=== PATIENT | male | born 1990 | race Caucasian/White ===

== ENCOUNTER 2016-11-11 08:38 | Emergency (ER) | payer OTHER ==
--- NOTE | 2016-11-11 13:05 | DIAGNOSTIC IMAGING REPORT ---
PROCEDURE: CT ABD/PELVIS WITH CONTRAST INDICATION: Mid abdominal pain. TECHNIQUE: 125 ml of Isovue 300 were injected intravenously and axial images were obtained of the entire abdomen and pelvis with sagittal and coronal reformations. COMPARISON: None. FINDINGS: ABDOMEN: There is moderate increased fluid and gas in the stomach, small bowel, and colon. Appendix is normal. Gallbladder, liver, spleen, pancreas, kidneys, and aorta are normal. Bowel pattern is normal, including appendix. PELVIS: Moderate increased fluid throughout the sigmoid colon and rectum. Small amount of free fluid. IMPRESSION: 1. Moderate increased fluid in the stomach, small bowel, colon, and rectum. Findings are compatible with gastroenterocolitis. 2. Normal appendix. 3. Otherwise negative CT abdomen and pelvis. 4. Findings discussed with Dr. Gonzalez Maguire. All CT scans at this facility use dose modulation, iterative reconstruction, and/or weight-based dosing when appropriate to reduce radiation dose to as low as reasonably achievable.
--- NOTE | 2016-11-11 13:21 | ED CLINICAL REPORT ---
Clinical Report - Physicians/Mid Levels [facility] [address] [place] [address] 11/11/2016 8:44 Patient: VANDANA BYNUM Time Seen: 09:03. Arrived- By private vehicle. Historian- patient. HISTORY OF PRESENT ILLNESS Chief Complaint: ABDOMINAL PAIN and VOMITING and DIARRHEA. At its maximum, severity described as moderate. When seen in the E.D., severity described as moderate. It is described as cramping and diffuse. This started about 5 days ago and is still present. It was gradual in onset and has been intermittent and waxing/waning. The patient has had nausea, vomiting and diarrhea. REVIEW OF SYSTEMS The patient has had chills and experienced sweats. No fever, calf pain, chest pain, cough or difficulty breathing. No pedal edema, palpitations, black stools, bloody stools or urinary problems. All systems otherwise negative, except as recorded above. SOCIAL HISTORY Current every day light tobacco smoker (cigarette)- less than 1/2 a pack per day. History of drug use: heroin, methamphetamines. No alcohol use. FAMILY HISTORY Denies family medical history. ADDITIONAL NOTES The nursing notes have been reviewed. PHYSICAL EXAM Vital Signs: 11/11/2016 08:50 BP: 123/65. HR: 87. RR: 18. O2 saturation: 96%. Temp: 97.8 F. Have been reviewed. Appearance: Alert. Eyes: Pupils equal, round and reactive to light. ENT: Pharynx normal. Neck: Normal inspection. Neck supple. CVS: Normal heart rate and rhythm. Heart sounds normal. Pulses normal. Respiratory: No respiratory distress. Breath sounds normal. Abdomen: Soft. Mild tenderness diffusely. Abnormal bowel sounds: hyperactive. No organomegaly. No mass. Back: Normal inspection. No CVA tenderness. Skin: Skin warm and dry. Normal skin color. Normal skin turgor. Extremities: Extremities exhibit normal ROM. No calf tenderness. No lower extremity edema. LABS, X-RAYS, AND EKG Abdominal CT: IMPRESSION: 1. Moderate increased fluid in the stomach, small bowel, colon, and rectum. Findings are compatible with gastroenterocolitis. 2. Normal appendix. 3. Otherwise negative CT abdomen and pelvis. The study was interpreted by the radiologist and contemporaneously by me. Laboratory Tests: UA-Culture if indicated: (KIANNA: 11/11/2016 10:00) ( [facility] [place] 10[facility]43[facility] Final results Test Result Flag Units (Reference) URINE COLOR YELLOW URINE APPEARANCE CLEAR URINE GLUCOSE NEGATIVE (NEGATIVE) URINE BILIRUBIN 1+ (NEGATIVE) URINE BILIRUBIN ICTOTEST POSITIVE (NEGATIVE) URINE KETONE NEGATIVE (NEGATIVE) URINE SPECIFIC GRAVITY >= 1.030 (1.010-1.030) URINE PH 6.0 (5.0-8.0) URINE PROTEIN NEGATIVE (NEGATIVE) URINE UROBILINOGEN 0.2 EU/dL (0.2-1.0) URINE NITRITE NEGATIVE (NEGATIVE) URINE BLOOD NEGATIVE (NEGATIVE) URINE LEUK ESTERASE NEGATIVE (NEGATIVE) URINE RBC NONE SEEN rbc/hpf (0-1) URINE WBC NONE SEEN wbc/hpf (0-1) URINE EPITHELIAL CELLS 1-3 EPI/hpf (0-5) URINE BACTERIA NONE SEEN (NONE SEEN) URINE COMMENT CULT NOT INDICATED URINE CULTURES ARE SET-UP BASED ON THE FOLLOWING CRITERIA:POSITIVE NITRITEPOSITIVE LEUKOCYTE ESTERASEGREATER THAN 10 WHITE BLOOD CELLSMODERATE (2+) OR GREATER BACTERIA CBC w Diff: (KIANNA: 11/11/2016 09:27) ( [facility] [place] 11/11/2016 09:39) Final results Test Result Flag Units (Reference) WHITE BLOOD COUNT 7.2 K/uL (4.5-11.5) RED BLOOD COUNT 4.39 L M/uL (4.50-5.90) HEMOGLOBIN 12.9 L gm/dL (13.5-17.5) HEMATOCRIT 37.7 L % (41.0-53.0) MEAN CELL VOLUME 86 fL (80-100) MEAN CORPUSCULAR HGB 29 pg (26-34) MEAN CORPUSCULAR HGB CONC 34 g/dL (31-37) RED CELL DISTRIBUTION WIDTH 14.8 % (11.6-14.8) PLATELET COUNT 250 K/uL (150-400) NEUTROPHIL % 65.9 % (50-75) LYMPH % 23.3 L % (25-40) MONO % 8.4 % (3-14) EOSINOPHIL % 2.1 % (0-4) BASOPHIL % 0.3 % (0-2) Urine Drug Screen: (KIANNA: 11/11/2016 10:00) ( [facility] 11/11/2016 10:25) Final results Test Result Flag Units (Reference) AMPHETAMINE/METHAMPHETAMINE POSITIVE H (NEGATIVE) BARBITURATE NEGATIVE (NEGATIVE) BENZODIAZEPINE NEGATIVE (NEGATIVE) CANNABINOID NEGATIVE (NEGATIVE) COCAINE NEGATIVE (NEGATIVE) ECSTASY POSITIVE H (NEGATIVE) METHADONE NEGATIVE (NEGATIVE) OPIATE POSITIVE H (NEGATIVE) The urine drug screen is a qualitative screening test fordrug overdose and abuse. All screen results should beconsidered as presumptive.Drugs screened for are as follows:BenzodiazepinesCocaineAmphetamines/MetamphetaminesTHC (Tetrahydrocannabinol)OpiatesBarbituratesEcstasyMethadonePositive results are unconfirmed. For confirmation, notifythe lab for the specimen to be sent to the reference lab.All confirmations must be performed by a differentmethodology.The ingestion of natural herbal and plant productscontaining Ephedra/Ephedra metabolites can produce in urineone or more substances capable of cross reacting withamphetamine/methamphetamine immunoassays. These testsprovide a preliminary result only. A more specificalternative chemical method must be used to obtain aconfirmed analytical result. CMP: (KIANNA: 11/11/2016 09:27) ( MsgRcvd 11/11/2016 10:14) Final results Test Result Flag Units (Reference) GLUCOSE 109 mg/dL (70-110) BUN 14 mg/dL (7-18) CREATININE 0.9 mg/dL (0.6-1.3) Estimated GFR >60 mL/min Estimated GFR- >60 mL/min Note: Persistent reduction over 3 months in eGFR<60 mL/min/1.73 m2 defines CKD. Patients with eGFR values>=60 mL/min/1.73 m2 may also have CKD if evidence ofpersistent proteinuria. Additional information may be foundat www.kidney.org. SODIUM 138 mmol/L (136-145) POTASSIUM 4.5 mmol/L (3.5-5.1) CHLORIDE 102 mmol/L (98-107) CARBON DIOXIDE 31 mmol/L (21-32) CALCIUM 8.9 mg/dL (8.5-10.1) TOTAL PROTEIN 7.1 g/dL (6.4-8.2) ALBUMIN 3.5 g/dL (3.3-5.0) BILIRUBIN, TOTAL 0.5 mg/dL (0.0-1.0) ALKALINE PHOSPHATASE 78 U/L (46-116) AST (SGOT) 18 U/L (15-37) ALT (SGPT) 25 U/L (12-78) LIPASE 70 L U/L (73-393) AMYLASE 19 L U/L (25-115) . PROGRESS AND PROCEDURES Course of Care: Patient is stable. Additional history sought. Old medical records ordered. Disposition: Discharged. Condition: stable. CLINICAL IMPRESSION Gastroenteritis. Substance abuse- heroin, methamphetamines. INSTRUCTIONS Drink plenty of fluids. Warnings: Further evaluation is necessary. GENERAL WARNINGS: Return or contact your physician immediately if your condition worsens or changes unexpectedly, if not improving as expected, or if other problems arise. Prescription Medications: Zofran 4 mg: Take 1 orally every six hours as needed for nausea/vomiting. Dispense ten (10). No refills. Substitution is permissible. Understanding of the discharge instructions verbalized by patient. (Electronically signed by Gonzalez Maguire MD 11/18/2016 15:37)
--- NOTE | 2016-11-11 13:21 | ED ORDER SUMMARY ---
..... Patient: VANDANA BYNUM OrderSheet [facility] VisitID: [id number] [place] [address] 25y, M Registration Date/Time: 11/11/2016 ORDER SHEET Weight: 72.5 kg (stated) Allergies: Penicillin GENERAL ORDERS: CBC w Diff Urgent (09:04 11/11/2016 Terrance DAVID) (Ack 9:06 LNations ER Tech1) (9:37 LWhalen R.N.) CMP Urgent (09:04 11/11/2016 Terrance DAVID) (Ack 9:06 LNations ER Tech1) (9:37 LWhalen R.N.) UA-Culture if indicated Urgent (09:04 11/11/2016 Terrance DAVID) (Ack 9:06 LNations ER Tech1) (10:04 PWeiler ER Tech1) Lipase Urgent (09:04 11/11/2016 Terrance DAVID) (Ack 9:06 LNations ER Tech1) (9:37 LWhalen R.N.) Amylase Urgent (09:04 11/11/2016 Terrance DAVID) (Ack 9:06 LNations ER Tech1) (9:37 LWhalen R.N.) Urine Drug Screen Urgent (09:05 11/11/2016 Terrance DAVID) (Ack 9:06 LNations ER Tech1) (10:04 PWeiler ER Tech1) CT Abd/Pel w Cont (No) (See report) Urgent (11:01 11/11/2016 Terrance DAVID) (Ack 11:03 LNations ER Tech1) (14:14 Elmer R.N.) MEDICATION ORDERS: IV FLUIDS: IV NS : initial bolus 1000 mL (1000 mL/hr), then 200 mL/hr for 4h (NOW); Urgent (09:04 11/11/2016 Terrance DAVID) (9:37 LWlonny R.N.) Zofran IV 4 mg (NOW) (09:04 11/11/2016 Terrance DAVID) (9:37 LWhalen R.N.) ORDER SHEET NOTES: [Electronically signed by Rachel Encarnacion R.N. (14:15 11/11/2016)] [Electronically signed by Gonzalez Maguire MD (15:37 11/18/2016)] [Electronically locked/signed by Rachel Encarnacion R.N. (14:15 11/11/2016)]
--- NOTE | 2016-11-11 13:21 | ED NURSING NOTES ---
Clinical Report - Nurses [place] [address] [place] [address] 11/11/2016 8:44 [id number] Triage time 08:50 Nov 11 2016. Acuity: LEVEL 3. Chief Complaint: ABDOMINAL PAIN, NAUSEA, VOMITING and DIARRHEA. YONIS COMA SCORE: Yonis Coma Scale: 15- eyes open spontaneously (4); best verbal response- oriented x 4 (5); best motor response- obeys commands (6). --08:54 Brittany Gonzalez R.N. 08:50 11/11/16. BP: 123/65. HR: 87. RR: 18. O2 saturation: 96%. Temp: 97.8 F. Pain level now 3/10. --08:54 Brittany Gonzalez R.N. Weight: 72.5 kg stated. Height/Length: 74 inches Per Patient. BMI: 20.5. --08:51 Brittany Gonzalez R.N. Medications None. --08:51 Brittany Gonzalez R.N. Allergies Penicillin. --08:51 Brittany Gonzalez R.N. History Arrived by private vehicle. Historian: patient. Accompanied by friend. ( 5 days of vomiting and diarrhea.). He has had nausea, vomiting, diarrhea and abdominal pain. No constipation or fever. Last oral intake by patient was (fluids only this am). Treatment COMMUNICATIONS DEPARTMENT HEAD: None. PAST MEDICAL HX: No history of diabetes mellitus. No history of gastroesophageal reflux disease, peptic ulcer disease or gallstones. Immunizations: up-to-date. SOCIAL HX: Current every day light tobacco smoker (cigarette)- less than 1/2 a pack per day. History of drug use: heroin, methamphetamines. No alcohol use. No recent travel. No known contact with a sick individual. SELF HARM ASSESSMENT: A self harm assessment was performed. The patient answered "no" to the question "Have you recently felt down, depressed, or hopeless?" and "Do you have thoughts of harming or killing yourself?". FALL RISK ASSESSMENT: Fall risk assessment completed. No fall risk identified. NUTRITIONAL RISK ASSESSMENT: The nutritional risk assessment revealed no deficiencies. FUNCTIONAL ASSESSMENT: Functional assessment: no impairments noted. LEARNING NEEDS ASSESSMENT: The learning needs assessment revealed no barriers. ABUSE ASSESSMENT: Abuse assessment: (yes) The patient was asked "Do you feel safe in your home?". SKIN INTEGRITY ASSESSMENT: Skin integrity risk assessment completed. No skin integrity risk identified. --08:54 Brittany Gonzalez R.N. PROBLEMS: no known problems. ADDITIONAL SURGERIES: no known surgeries. Interventions ID band on patient. --08:54 Brittany Gonzalez R.N. PHYSICAL ASSESSMENT Ambulatory to room. GENERAL / NEURO / PSYCH: Alert. Oriented X 4. Appears in no acute distress. ( Stumbling while walking. States he is okay). RESPIRATORY: Respirations not labored. Breath sounds within normal limits. CVS: Normal sinus rhythm noted. Capillary refill less than 2 seconds. GI / : The patient has diarrhea. Abdomen soft. Abdominal tenderness. Bowel sounds within normal limits. ( States having diarrhea all 5 days). SKIN: ( Old needle carlson and new ones on vein areas. Patient unkept and dirty.). --11:06 Brittany Gonzalez R.N. NURSING PROGRESS NOTES 09:37 11/11/2016 Site #1 started via IV in the right upper arm with an 22g angiocath, with aseptic technique and good blood return; one attempt. Saline lock flushed (unable to draw labs.). --09:37 Brittany Gonzalez R.N. 09:37 11/11/2016 Started bag #1 1000 mL IV Fluids IV NS (Saline); at 999 mL/hr over 1 hour(s) via site #1 via IV pump. Allergies verified and confirmed 5 rights. IV patency established. IV site checked: no pain, redness, or swelling. IV flushed thoroughly pre- and post-medication administration. --09:37 Brittany Gonzalez R.N. 09:37 11/11/2016 Zofran (Ondansetron HCl) IVP 4 mg given over 2 minute(s) via site #1. Allergies verified and confirmed 5 rights. IV patency established. IV site checked: no pain, redness, or swelling. IV flushed thoroughly pre- and post-medication administration. --09:37 Brittany Gonzalez R.N. The initial plan of care for this patient includes an assessment with efforts to address patient positioning, appropriate ambient lighting and comfortable environmental temperature; impairment of the gastrointestinal system. Pulse oximeter and NIBP monitor placed on patient. Patient gowned. Head of bed elevated 45 degrees. Reassurance given. Call light placed in reach. Side rails up x 1. Bed placed in lowest position. Brakes of bed on. --11:06 Brittany Gonzalez R.N. 11:22 11/11/2016 IV Fluids IV NS Bag Change: bag #1 infused. Total amount infused: 1000. STARTED bag #2 (1000 mL) at 200 mL/hr via IV pump. --11:22 Rachel Encarnacion R.N. 12:33 11/11/16. BP: 112/72. HR: 72. RR: 18. O2 saturation: 100%. 11:10 11/11/16. BP: 120/68. HR: 72. RR: 18. O2 saturation: 98%. 10:15 11/11/16. BP: 105/70. HR: 70. RR: 16. O2 saturation: 100%. --12:34 Brittany Gonzalez R.N. 14:05. The patient is calm and resting quietly. Overall patient status is improved- he states feels better. SKIN: Skin is warm and dry. --14:10 Rachel Encarnacion R.N. 14:05 pt was sleeping and had to be awakened by assistant operations manager, then was awake, alert, verbalized understanding and had no questions. --14:13 Rachel Encarnacion R.N. 14:05 11/11/2016 Site #1 removed upon discharge. Catheter intact. Bandaid applied. --14:14 Rachel Encarnacion R.N. 14:11/11/2016 IV Fluids IV NS Discontinued: bag #2 STOPPED upon discharge. Total amount infused: 200 mL. --14:14 Rachel Encarnacion R.N. Intake & Output IV fluids: 1200 mL. --14:15 Rachel Encarnacion R.N. DISPOSITION / DISCHARGE Departure time: 1405. Condition at departure: stable. No learning barriers present. Discharge instructions provided and reviewed with the patient. Reviewed medication(s). Prescription(s) given to the patient. Patient verbalized understanding. Written instructions provided in Ghanaian. The patient was discharged home and accompanied by assistant operations manager. He left the Emergency Department ambulatory. FALL RISK ASSESSMENT: Fall risk assessment completed. No fall risk identified. --14:09 Rachel Encarnacion R.N. 14:05 11/11/16. BP: 111/59. HR: 89. RR: 16. O2 saturation: 99% on room air. Temp: 98.2 F (oral). Pain level now: uncertain. --14:09 Rachel Encarnacion R.N. Locked/Released at 11/11/2016 14:15 by Rachel Encarnacion R.N.
--- NOTE | 2016-11-11 13:21 | ED ORDER SUMMARY ---
..... Patient: VANDANA BYNUM OrderSheet [facility] VisitID: [id number] [place] [address] 25y, M Registration Date/Time: 11/11/2016 ORDER SHEET Weight: 72.5 kg (stated) Allergies: Penicillin GENERAL ORDERS: CBC w Diff Urgent (09:04 11/11/2016 Terrance DAVID) (Ack 9:06 LNations ER Tech1) (9:37 LWhalen R.N.) CMP Urgent (09:04 11/11/2016 Terrance DAVID) (Ack 9:06 LNations ER Tech1) (9:37 LWhalen R.N.) UA-Culture if indicated Urgent (09:04 11/11/2016 Terrance DAVID) (Ack 9:06 LNations ER Tech1) (10:04 PWeiler ER Tech1) Lipase Urgent (09:04 11/11/2016 Terrance DAVID) (Ack 9:06 LNations ER Tech1) (9:37 LWhalen R.N.) Amylase Urgent (09:04 11/11/2016 Terrance DAVID) (Ack 9:06 LNations ER Tech1) (9:37 LWhalen R.N.) Urine Drug Screen Urgent (09:05 11/11/2016 Terrance DAVID) (Ack 9:06 LNations ER Tech1) (10:04 PWeiler ER Tech1) CT Abd/Pel w Cont (No) (See report) Urgent (11:01 11/11/2016 Terrance DAVID) (Ack 11:03 LNations ER Tech1) (14:14 Elmer R.N.) MEDICATION ORDERS: IV FLUIDS: IV NS : initial bolus 1000 mL (1000 mL/hr), then 200 mL/hr for 4h (NOW); Urgent (09:04 11/11/2016 Terrance DAVID) (9:37 LWlonny R.N.) Zofran IV 4 mg (NOW) (09:04 11/11/2016 Terrance DAVID) (9:37 LWhalen R.N.) ORDER SHEET NOTES: [Electronically signed by Rachel Encarnacion R.N. (14:15 11/11/2016)] [Electronically signed by Gonzalez Maguire MD (15:37 11/18/2016)] [Electronically locked/signed by Rachel Encarnacion R.N. (14:15 11/11/2016)]
--- NOTE | 2016-11-11 13:21 | ED CLINICAL REPORT ---
Clinical Report - Physicians/Mid Levels Located [facility] [address] [place] [address] 11/11/2016 8:44 Patient: VANDANA BYNUM Time Seen: 09:03. Arrived- By private vehicle. Historian- patient. HISTORY OF PRESENT ILLNESS Chief Complaint: ABDOMINAL PAIN and VOMITING and DIARRHEA. At its maximum, severity described as moderate. When seen in the E.D., severity described as moderate. It is described as cramping and diffuse. This started about 5 days ago and is still present. It was gradual in onset and has been intermittent and waxing/waning. The patient has had nausea, vomiting and diarrhea. REVIEW OF SYSTEMS The patient has had chills and experienced sweats. No fever, calf pain, chest pain, cough or difficulty breathing. No pedal edema, palpitations, black stools, bloody stools or urinary problems. All systems otherwise negative, except as recorded above. SOCIAL HISTORY Current every day light tobacco smoker (cigarette)- less than 1/2 a pack per day. History of drug use: heroin, methamphetamines. No alcohol use. FAMILY HISTORY Denies family medical history. ADDITIONAL NOTES The nursing notes have been reviewed. PHYSICAL EXAM Vital Signs: 11/11/2016 08:50 BP: 123/65. HR: 87. RR: 18. O2 saturation: 96%. Temp: 97.8 F. Have been reviewed. Appearance: Alert. Eyes: Pupils equal, round and reactive to light. ENT: Pharynx normal. Neck: Normal inspection. Neck supple. CVS: Normal heart rate and rhythm. Heart sounds normal. Pulses normal. Respiratory: No respiratory distress. Breath sounds normal. Abdomen: Soft. Mild tenderness diffusely. Abnormal bowel sounds: hyperactive. No organomegaly. No mass. Back: Normal inspection. No CVA tenderness. Skin: Skin warm and dry. Normal skin color. Normal skin turgor. Extremities: Extremities exhibit normal ROM. No calf tenderness. No lower extremity edema. LABS, X-RAYS, AND EKG Abdominal CT: IMPRESSION: 1. Moderate increased fluid in the stomach, small bowel, colon, and rectum. Findings are compatible with gastroenterocolitis. 2. Normal appendix. 3. Otherwise negative CT abdomen and pelvis. The study was interpreted by the radiologist and contemporaneously by me. Laboratory Tests: UA-Culture if indicated: (KIANNA: 11/11/2016 10:00) ( [facility] [place]11[place] 10:43) Final results Test Result Flag Units (Reference) URINE COLOR YELLOW URINE APPEARANCE CLEAR URINE GLUCOSE NEGATIVE (NEGATIVE) URINE BILIRUBIN 1+ (NEGATIVE) URINE BILIRUBIN ICTOTEST POSITIVE (NEGATIVE) URINE KETONE NEGATIVE (NEGATIVE) URINE SPECIFIC GRAVITY >= 1.030 (1.010-1.030) URINE PH 6.0 (5.0-8.0) URINE PROTEIN NEGATIVE (NEGATIVE) URINE UROBILINOGEN 0.2 EU/dL (0.2-1.0) URINE NITRITE NEGATIVE (NEGATIVE) URINE BLOOD NEGATIVE (NEGATIVE) URINE LEUK ESTERASE NEGATIVE (NEGATIVE) URINE RBC NONE SEEN rbc/hpf (0-1) URINE WBC NONE SEEN wbc/hpf (0-1) URINE EPITHELIAL CELLS 1-3 EPI/hpf (0-5) URINE BACTERIA NONE SEEN (NONE SEEN) URINE COMMENT CULT NOT INDICATED URINE CULTURES ARE SET-UP BASED ON THE FOLLOWING CRITERIA:POSITIVE NITRITEPOSITIVE LEUKOCYTE ESTERASEGREATER THAN 10 WHITE BLOOD CELLSMODERATE (2+) OR GREATER BACTERIA CBC w Diff: (KIANNA: 11/11/2016 09:27) ( [facility] [place] 11/11/2016 09:39) Final results Test Result Flag Units (Reference) WHITE BLOOD COUNT 7.2 K/uL (4.5-11.5) RED BLOOD COUNT 4.39 L M/uL (4.50-5.90) HEMOGLOBIN 12.9 L gm/dL (13.5-17.5) HEMATOCRIT 37.7 L % (41.0-53.0) MEAN CELL VOLUME 86 fL (80-100) MEAN CORPUSCULAR HGB 29 pg (26-34) MEAN CORPUSCULAR HGB CONC 34 g/dL (31-37) RED CELL DISTRIBUTION WIDTH 14.8 % (11.6-14.8) PLATELET COUNT 250 K/uL (150-400) NEUTROPHIL % 65.9 % (50-75) LYMPH % 23.3 L % (25-40) MONO % 8.4 % (3-14) EOSINOPHIL % 2.1 % (0-4) BASOPHIL % 0.3 % (0-2) Urine Drug Screen: (KIANNA: 11/11/2016 10:00) ( MsgRcvd 11/11/2016 10:25) Final results Test Result Flag Units (Reference) AMPHETAMINE/METHAMPHETAMINE POSITIVE H (NEGATIVE) BARBITURATE NEGATIVE (NEGATIVE) BENZODIAZEPINE NEGATIVE (NEGATIVE) CANNABINOID NEGATIVE (NEGATIVE) COCAINE NEGATIVE (NEGATIVE) ECSTASY POSITIVE H (NEGATIVE) METHADONE NEGATIVE (NEGATIVE) OPIATE POSITIVE H (NEGATIVE) The urine drug screen is a qualitative screening test fordrug overdose and abuse. All screen results should beconsidered as presumptive.Drugs screened for are as follows:BenzodiazepinesCocaineAmphetamines/MetamphetaminesTHC (Tetrahydrocannabinol)OpiatesBarbituratesEcstasyMethadonePositive results are unconfirmed. For confirmation, notifythe lab for the specimen to be sent to the reference lab.All confirmations must be performed by a differentmethodology.The ingestion of natural herbal and plant productscontaining Ephedra/Ephedra metabolites can produce in urineone or more substances capable of cross reacting withamphetamine/methamphetamine immunoassays. These testsprovide a preliminary result only. A more specificalternative chemical method must be used to obtain aconfirmed analytical result. CMP: (KIANNA: 11/11/2016 09:27) ( MsgRcvd 11/11/2016 10:14) Final results Test Result Flag Units (Reference) GLUCOSE 109 mg/dL (70-110) BUN 14 mg/dL (7-18) CREATININE 0.9 mg/dL (0.6-1.3) Estimated GFR >60 mL/min Estimated GFR- >60 mL/min Note: Persistent reduction over 3 months in eGFR<60 mL/min/1.73 m2 defines CKD. Patients with eGFR values>=60 mL/min/1.73 m2 may also have CKD if evidence ofpersistent proteinuria. Additional information may be foundat www.kidney.org. SODIUM 138 mmol/L (136-145) POTASSIUM 4.5 mmol/L (3.5-5.1) CHLORIDE 102 mmol/L (98-107) CARBON DIOXIDE 31 mmol/L (21-32) CALCIUM 8.9 mg/dL (8.5-10.1) TOTAL PROTEIN 7.1 g/dL (6.4-8.2) ALBUMIN 3.5 g/dL (3.3-5.0) BILIRUBIN, TOTAL 0.5 mg/dL (0.0-1.0) ALKALINE PHOSPHATASE 78 U/L (46-116) AST (SGOT) 18 U/L (15-37) ALT (SGPT) 25 U/L (12-78) LIPASE 70 L U/L (73-393) AMYLASE 19 L U/L (25-115) . PROGRESS AND PROCEDURES Course of Care: Patient is stable. Additional history sought. Old medical records ordered. Disposition: Discharged. Condition: stable. CLINICAL IMPRESSION Gastroenteritis. Substance abuse- heroin, methamphetamines. INSTRUCTIONS Drink plenty of fluids. Warnings: Further evaluation is necessary. GENERAL WARNINGS: Return or contact your physician immediately if your condition worsens or changes unexpectedly, if not improving as expected, or if other problems arise. Prescription Medications: Zofran 4 mg: Take 1 orally every six hours as needed for nausea/vomiting. Dispense ten (10). No refills. Substitution is permissible. Understanding of the discharge instructions verbalized by patient. (Electronically signed by Gonzalez Maguire MD 11/18/2016 15:37)
--- NOTE | 2016-11-11 13:21 | ED NURSING NOTES ---
Clinical Report - Nurses [place] [address] [place] [address] 11/11/2016 8:44 [id number] Triage time 08:50 Nov 11 2016. Acuity: LEVEL 3. Chief Complaint: ABDOMINAL PAIN, NAUSEA, VOMITING and DIARRHEA. YONIS COMA SCORE: Yonis Coma Scale: 15- eyes open spontaneously (4); best verbal response- oriented x 4 (5); best motor response- obeys commands (6). --08:54 Brittany Gonzalez R.N. 08:50 11/11/16. BP: 123/65. HR: 87. RR: 18. O2 saturation: 96%. Temp: 97.8 F. Pain level now 3/10. --08:54 Brittany Gonzalez R.N. Weight: 72.5 kg stated. Height/Length: 74 inches Per Patient. BMI: 20.5. --08:51 Brittany Gonzalez R.N. Medications None. --08:51 Brittany Gonzalez R.N. Allergies Penicillin. --08:51 Brittany Gonzalez R.N. History Arrived by private vehicle. Historian: patient. Accompanied by friend. ( 5 days of vomiting and diarrhea.). He has had nausea, vomiting, diarrhea and abdominal pain. No constipation or fever. Last oral intake by patient was (fluids only this am). 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 PAST MEDICAL HX: No history of diabetes mellitus. No history of gastroesophageal reflux disease, peptic ulcer disease or gallstones. Immunizations: up-to-date. SOCIAL HX: Current every day light tobacco smoker (cigarette)- less than 1/2 a pack per day. History of drug use: heroin, methamphetamines. No alcohol use. No recent travel. No known contact with a sick individual. SELF HARM ASSESSMENT: A self harm assessment was performed. The patient answered "no" to the question "Have you recently felt down, depressed, or hopeless?" and "Do you have thoughts of harming or killing yourself?". FALL RISK ASSESSMENT: Fall risk assessment completed. No fall risk identified. NUTRITIONAL RISK ASSESSMENT: The nutritional risk assessment revealed no deficiencies. FUNCTIONAL ASSESSMENT: Functional assessment: no impairments noted. LEARNING NEEDS ASSESSMENT: The learning needs assessment revealed no barriers. ABUSE ASSESSMENT: Abuse assessment: (yes) The patient was asked "Do you feel safe in your home?". SKIN INTEGRITY ASSESSMENT: Skin integrity risk assessment completed. No skin integrity risk identified. --08:54 Brittany Gonzalez R.N. PROBLEMS: no known problems. ADDITIONAL SURGERIES: no known surgeries. Interventions ID band on patient. --08:54 Brittany Gonzalez R.N. PHYSICAL ASSESSMENT Ambulatory to room. GENERAL / NEURO / PSYCH: Alert. Oriented X 4. Appears in no acute distress. ( Stumbling while walking. States he is okay). RESPIRATORY: Respirations not labored. Breath sounds within normal limits. CVS: Normal sinus rhythm noted. Capillary refill less than 2 seconds. GI / : The patient has diarrhea. Abdomen soft. Abdominal tenderness. Bowel sounds within normal limits. ( States having diarrhea all 5 days). SKIN: ( Old needle carlson and new ones on vein areas. Patient unkept and dirty.). --11:06 Brittany Gonzalez R.N. NURSING PROGRESS NOTES 09:37 11/11/2016 Site #1 started via IV in the right upper arm with an 22g angiocath, with aseptic technique and good blood return; one attempt. Saline lock flushed (unable to draw labs.). --09:37 Brittany Gonzalez R.N. 09:37 11/11/2016 Started bag #1 1000 mL IV Fluids IV NS (Saline); at 999 mL/hr over 1 hour(s) via site #1 via IV pump. Allergies verified and confirmed 5 rights. IV patency established. IV site checked: no pain, redness, or swelling. IV flushed thoroughly pre- and post-medication administration. --09:37 Brittany Gonzalez R.N. 09:37 11/11/2016 Zofran (Ondansetron HCl) IVP 4 mg given over 2 minute(s) via site #1. Allergies verified and confirmed 5 rights. IV patency established. IV site checked: no pain, redness, or swelling. IV flushed thoroughly pre- and post-medication administration. --09:37 Brittany Gonzalez R.N. The initial plan of care for this patient includes an assessment with efforts to address patient positioning, appropriate ambient lighting and comfortable environmental temperature; impairment of the gastrointestinal system. Pulse oximeter and NIBP monitor placed on patient. Patient gowned. Head of bed elevated 45 degrees. Reassurance given. Call light placed in reach. Side rails up x 1. Bed placed in lowest position. Brakes of bed on. --11:06 Brittany Gonzalez R.N. 11:22 11/11/2016 IV Fluids IV NS Bag Change: bag #1 infused. Total amount infused: 1000. STARTED bag #2 (1000 mL) at 200 mL/hr via IV pump. --11:22 Rachel Encarnacion R.N. 12:33 11/11/16. BP: 112/72. HR: 72. RR: 18. O2 saturation: 100%. 11:10 11/11/16. BP: 120/68. HR: 72. RR: 18. O2 saturation: 98%. 10:15 11/11/16. BP: 105/70. HR: 70. RR: 16. O2 saturation: 100%. --12:34 Brittany Gonzalez R.N. 14:05. The patient is calm and resting quietly. Overall patient status is improved- he states feels better. SKIN: Skin is warm and dry. --14:10 Rachel Encarnacion R.N. 14:05 pt was sleeping and had to be awakened by carpenter helper hardwood flooring, then was awake, alert, verbalized understanding and had no questions. --14:13 Rachel Encarnacion R.N. 14:05 11/11/2016 Site #1 removed upon discharge. Catheter intact. Bandaid applied. --14:14 Rachel Encarnacion R.N. 14:11/11/2016 IV Fluids IV NS Discontinued: bag #2 STOPPED upon discharge. Total amount infused: 200 mL. --14:14 Rachel Encarnacion R.N. Intake & Output IV fluids: 1200 mL. --14:15 Rachel Encarnacion R.N. DISPOSITION / DISCHARGE Departure time: 1405. Condition at departure: stable. No learning barriers present. Discharge instructions provided and reviewed with the patient. Reviewed medication(s). Prescription(s) given to the patient. Patient verbalized understanding. Written instructions provided in Fijian. The patient was discharged home and accompanied by carpenter helper hardwood flooring. He left the Emergency Department ambulatory. FALL RISK ASSESSMENT: Fall risk assessment completed. No fall risk identified. --14:09 Rachel Encarnacion R.N. 14:05 11/11/16. BP: 111/59. HR: 89. RR: 16. O2 saturation: 99% on room air. Temp: 98.2 F (oral). Pain level now: uncertain. --14:09 Rachel Encarnacion R.N. Locked/Released at 11/11/2016 14:15 by Rachel Encarnacion R.N.
--- NOTE | 2016-11-18 15:38 | ED MAR SUMMARY ---
..... Medication Administration Record [facility] [address] [place] [address] Patient: VANDANA BYNUM Visit ID: [id number] 25y, M Weight: 72.5 kg Height/Length: 74 in BMI: 20.5 ALLERGIES: Penicillin Start 09:37 11/11/2016 Brittany Gonzalez R.N., Stop 14:05 11/11/2016 Rachel Encarnacion R.N. Medication Administered: IV NS (SALINE), Dose: IV Fluids over 1 hour(s), Rate: 999 mL/hr, Dispensed: 1000 mL bag, Site: #1 right upper arm. Medication Ordered: IV NS : initial bolus 1000 mL (1000 mL/hr), then 200 mL/hr for 4h (NOW); Urgent. Given 09:37 11/11/2016 Brittany Gonzalez RNeal Medication Administered: ZOFRAN [IVP] (ONDANSETRON HCL), Dose: 4 mg IVP over 2 minute(s), Site: #1 right upper arm. Medication Ordered: Zofran IV 4 mg (NOW).
--- NOTE | 2016-11-18 15:38 | ED DISCHARGE INSTRUCTIONS ---
Patient: VANDANA BYNUM General Instructions [facility] VisitID: [id number] [place] [address] 25y, M Registration Date/Time: 11/11/2016 Gastroenteritis. Substance abuse- heroin, methamphetamines. INSTRUCTIONS Drink plenty of fluids. Warnings: Further evaluation is necessary. GENERAL WARNINGS: Return or contact your physician immediately if your condition worsens or changes unexpectedly, if not improving as expected, or if other problems arise. Prescription Medications: Zofran 4 mg: Take 1 orally every six hours as needed for nausea/vomiting. Dispense ten (10). No refills. Substitution is permissible. Understanding of the discharge instructions verbalized by patient. ADDITIONAL INFORMATION Viral Gastroenteritis (6Yr-Adult) Gastroenteritis is another name for thestomach flu.It is most often caused by a virus that affects the stomach and intestinal tract. Symptoms include stomach cramping and fever, vomiting and/or diarrhea, and can last from 2 to 7 days. The danger from repeated vomiting or diarrhea is dehydration. This is the loss of too much water and minerals from the body. When this occurs, body fluids must be replaced. Antibiotics are not effective for this illness, but simple home treatment will be helpful. Home Care If symptoms are severe, rest at home for the next 24 hours. Avoid tobacco, caffeine, and alcohol use, which can worsen symptoms. Acetaminophen (Tylenol) or ibuprofen (Motrin, Advil) may be usedfor fever or pain unless another medication was prescribed. NOTE: If you have chronic liver or kidney disease or ever had a stomach ulcer or GI bleeding, talk with your doctor before using these medicines. Aspirin should never be used in anyone under 18 years of age who is ill with a fever. It may cause severe liver damage. If medicines for diarrhea or vomiting were prescribed, be sure they are takenonly as directed. If vomiting, drink small amounts of clear fluids (such as water, sports drinks, clear sodas) at frequent intervals to prevent dehydration. Start with 1 to 2 tablespoons every 10 minutes. Once vomiting stops, follow these guidelines: During The First 12 To 24 Hours follow the diet below: Beverages: Sport drinks like Gatorade, soft drinks without caffeine; stepan sarina, mineral water (plain or flavored), decaffeinated tea and coffee. Soups: Clear broth, consomm and bouillon Desserts: Plain gelatin (Jell-O), Popsicles and fruit juice bars. During The Next 24 Hours you may add the following to the above: Hot cereal, plain toast, bread, rolls, crackers Plain noodles, rice, mashed potatoes, chicken noodle or rice soup Unsweetened canned fruit (avoid pineapple), bananas Limit fat intake to less than 15 grams per day by avoiding margarine, butter, oils, mayonnaise, sauces, gravies, fried foods, peanut butter, meat, poultry, and fish. Limit fiber; avoid raw or cooked vegetables, fresh fruits (except bananas), and bran cereals. Limit caffeine and chocolate. Do not use spices or seasonings except salt. During The Next 24 Hours The patient can gradually resume a normal diet as symptoms lessen. Preventing Spread Hand washing with soap and water is the best way to prevent the spread of viruses. Caregivers should wash their hands before andafter touching the sick person. The sick person, as well as everyone in the family,should wash their hands after using the toilet and before meals. Clean the toilet after each use. People with diarrhea should not prepare food for others. If you are preparing your own foods, wash your hands before and after. Follow Up with your doctor as advised. Call your doctor if you are not improving over the next 2 to 3 days. If a stool (diarrhea) sample was taken, you may call in 2 days (or as directed) for the results. Get Prompt Medical Attention if any of the following occur: Increasing abdominal pain Continued vomiting (unable to keep liquids down) Frequent diarrhea (more than 5 times a day) Blood in vomit or stool (black or red color) Dark urine, reduced urine output, or extreme thirst Weakness, dizziness, fainting Drowsiness, confusion, stiff neck, or seizure Fever of 100.4F (38C) oral or higher, not better with fever medication New rash Ondansetron Oral disintegrating tablet What is this medicine? ONDANSETRON (on JANET se carlos) is used to treat nausea and vomiting caused by chemotherapy. It is also used to prevent or treat nausea and vomiting after surgery. How should I use this medicine? These tablets are made to dissolve in the mouth. Do not try to push the tablet through the foil backing. With dry hands, peel away the foil backing and gently remove the tablet. Place the tablet in the mouth and allow it to dissolve, then swallow. While you may take these tablets with water, it is not necessary to do so. Talk to your bi analyst regarding the use of this medicine in children. Special care may be needed. What side effects may I notice from receiving this medicine? Side effects that you should report to your doctor or health rn long term care as soon as possible: allergic reactions like skin rash, itching or hives, swelling of the face, lips, or tongue breathing problems dizziness fast or irregular heartbeat feeling faint or lightheaded, falls fever and chills swelling of the hands and feet tightness in the chest Side effects that usually do not require medical attention (report to your doctor or health rn long term care if they continue or are bothersome): constipation or diarrhea headache What may interact with this medicine? Do not take this medicine with any of the following medications: -apomorphine -cisapride -dofetilide -dronedarone -pimozide -thioridazine -ziprasidone This medicine may also interact with the following medications: -carbamazepine -phenytoin -rifampicin -tramadol -other medicines that prolong the QT interval (cause an abnormal heart rhythm) What if I miss a dose? If you miss a dose, take it as soon as you can. If it is almost time for your next dose, take only that dose. Do not take double or extra doses. Where should I keep my medicine? Keep out of the reach of children. Store between 2 and 30 degrees C (36 and 86 degrees F). Throw away any unused medicine after the expiration date. What should I tell my health care provider before I take this medicine? They need to know if you have any of these conditions: heart disease history of irregular heartbeat liver disease low levels of magnesium or potassium in the blood an unusual or allergic reaction to ondansetron, granisetron, other medicines, foods, dyes, or preservatives or trying to get breast-feeding What should I watch for while using this medicine? Check with your doctor or health rn long term care as soon as you can if you have any sign of an allergic reaction. You have been given the following additional information: Gastroenteritis, Viral (6Y-Adult) Ondansetron Oral disintegrating tablet (Electronically signed by Gonzalez Maguire MD 11/18/2016 15:37)
--- NOTE | 2016-11-18 15:38 | ED MED RECONCILIATION SUMMARY ---
Patient: VANDANA BYNUM Medication Reconciliation Report [facility] VisitID: [id number] [address] [place] [address] 25y, M Registration Date/Time: 11/11/2016 Weight: 72.5 kg Height/Length: 74 in. BMI: 20.5 ALLERGIES: Penicillin The patient's Home Medications are listed below: NONE. The source(s) of the original Home Medication information: Not obtained. The following Medications were given to the patient in the Emergency Department: IV NS IV Fluids bolus 0, then 999 mL/hr, administered: 11/11/2016 9:37:00 AM Zofran [IVP] IVP 4 mg, administered: 11/11/2016 9:37:00 AM The following Medications were prescribed to the patient: Zofran 4 mg: Take 1 orally every six hours as needed for nausea/vomiting. Dispense ten (10). No refills. Substitution is permissible. -- Gonzalez Maguire MD
--- NOTE | 2016-11-18 15:38 | ED DISCHARGE INSTRUCTIONS ---
Patient: VANDANA BYNUM General Instructions [facility] VisitID: [id number] [place] [address] 25y, M Registration Date/Time: 11/11/2016 Gastroenteritis. Substance abuse- heroin, methamphetamines. INSTRUCTIONS Drink plenty of fluids. Warnings: Further evaluation is necessary. GENERAL WARNINGS: Return or contact your physician immediately if your condition worsens or changes unexpectedly, if not improving as expected, or if other problems arise. Prescription Medications: Zofran 4 mg: Take 1 orally every six hours as needed for nausea/vomiting. Dispense ten (10). No refills. Substitution is permissible. Understanding of the discharge instructions verbalized by patient. ADDITIONAL INFORMATION Viral Gastroenteritis (6Yr-Adult) Gastroenteritis is another name for thestomach flu.It is most often caused by a virus that affects the stomach and intestinal tract. Symptoms include stomach cramping and fever, vomiting and/or diarrhea, and can last from 2 to 7 days. The danger from repeated vomiting or diarrhea is dehydration. This is the loss of too much water and minerals from the body. When this occurs, body fluids must be replaced. Antibiotics are not effective for this illness, but simple home treatment will be helpful. Home Care If symptoms are severe, rest at home for the next 24 hours. Avoid tobacco, caffeine, and alcohol use, which can worsen symptoms. Acetaminophen (Tylenol) or ibuprofen (Motrin, Advil) may be usedfor fever or pain unless another medication was prescribed. NOTE: If you have chronic liver or kidney disease or ever had a stomach ulcer or GI bleeding, talk with your doctor before using these medicines. Aspirin should never be used in anyone under 18 years of age who is ill with a fever. It may cause severe liver damage. If medicines for diarrhea or vomiting were prescribed, be sure they are takenonly as directed. If vomiting, drink small amounts of clear fluids (such as water, sports drinks, clear sodas) at frequent intervals to prevent dehydration. Start with 1 to 2 tablespoons every 10 minutes. Once vomiting stops, follow these guidelines: During The First 12 To 24 Hours follow the diet below: Beverages: Sport drinks like Gatorade, soft drinks without caffeine; stepan sarina, mineral water (plain or flavored), decaffeinated tea and coffee. Soups: Clear broth, consomm and bouillon Desserts: Plain gelatin (Jell-O), Popsicles and fruit juice bars. During The Next 24 Hours you may add the following to the above: Hot cereal, plain toast, bread, rolls, crackers Plain noodles, rice, mashed potatoes, chicken noodle or rice soup Unsweetened canned fruit (avoid pineapple), bananas Limit fat intake to less than 15 grams per day by avoiding margarine, butter, oils, mayonnaise, sauces, gravies, fried foods, peanut butter, meat, poultry, and fish. Limit fiber; avoid raw or cooked vegetables, fresh fruits (except bananas), and bran cereals. Limit caffeine and chocolate. Do not use spices or seasonings except salt. During The Next 24 Hours The patient can gradually resume a normal diet as symptoms lessen. Preventing Spread Hand washing with soap and water is the best way to prevent the spread of viruses. Caregivers should wash their hands before andafter touching the sick person. The sick person, as well as everyone in the family,should wash their hands after using the toilet and before meals. Clean the toilet after each use. People with diarrhea should not prepare food for others. If you are preparing your own foods, wash your hands before and after. Follow Up with your doctor as advised. Call your doctor if you are not improving over the next 2 to 3 days. If a stool (diarrhea) sample was taken, you may call in 2 days (or as directed) for the results. Get Prompt Medical Attention if any of the following occur: Increasing abdominal pain Continued vomiting (unable to keep liquids down) Frequent diarrhea (more than 5 times a day) Blood in vomit or stool (black or red color) Dark urine, reduced urine output, or extreme thirst Weakness, dizziness, fainting Drowsiness, confusion, stiff neck, or seizure Fever of 100.4F (38C) oral or higher, not better with fever medication New rash Ondansetron Oral disintegrating tablet What is this medicine? ONDANSETRON (on JANET se carlos) is used to treat nausea and vomiting caused by chemotherapy. It is also used to prevent or treat nausea and vomiting after surgery. How should I use this medicine? These tablets are made to dissolve in the mouth. Do not try to push the tablet through the foil backing. With dry hands, peel away the foil backing and gently remove the tablet. Place the tablet in the mouth and allow it to dissolve, then swallow. While you may take these tablets with water, it is not necessary to do so. Talk to your frozen pie maker regarding the use of this medicine in children. Special care may be needed. What side effects may I notice from receiving this medicine? Side effects that you should report to your doctor or health director day care center as soon as possible: allergic reactions like skin rash, itching or hives, swelling of the face, lips, or tongue breathing problems dizziness fast or irregular heartbeat feeling faint or lightheaded, falls fever and chills swelling of the hands and feet tightness in the chest Side effects that usually do not require medical attention (report to your doctor or health director day care center if they continue or are bothersome): constipation or diarrhea headache What may interact with this medicine? Do not take this medicine with any of the following medications: -apomorphine -cisapride -dofetilide -dronedarone -pimozide -thioridazine -ziprasidone This medicine may also interact with the following medications: -carbamazepine -phenytoin -rifampicin -tramadol -other medicines that prolong the QT interval (cause an abnormal heart rhythm) What if I miss a dose? If you miss a dose, take it as soon as you can. If it is almost time for your next dose, take only that dose. Do not take double or extra doses. Where should I keep my medicine? Keep out of the reach of children. Store between 2 and 30 degrees C (36 and 86 degrees F). Throw away any unused medicine after the expiration date. What should I tell my health care provider before I take this medicine? They need to know if you have any of these conditions: heart disease history of irregular heartbeat liver disease low levels of magnesium or potassium in the blood an unusual or allergic reaction to ondansetron, granisetron, other medicines, foods, dyes, or preservatives or trying to get breast-feeding What should I watch for while using this medicine? Check with your doctor or health director day care center as soon as you can if you have any sign of an allergic reaction. You have been given the following additional information: Gastroenteritis, Viral (6Y-Adult) Ondansetron Oral disintegrating tablet (Electronically signed by Gonzalez Maguire MD 11/18/2016 15:37)
--- NOTE | 2016-11-18 15:38 | ED MAR SUMMARY ---
..... Medication Administration Record [facility] [address] [place] [address] Patient: VANDANA BYNUM Visit ID: [id number] 25y, M Weight: 72.5 kg Height/Length: 74 in BMI: 20.5 ALLERGIES: Penicillin Start 09:37 11/11/2016 Brittany Gonzalez R.N., Stop 14:05 11/11/2016 Rachel Encarnacion R.N. Medication Administered: IV NS (SALINE), Dose: IV Fluids over 1 hour(s), Rate: 999 mL/hr, Dispensed: 1000 mL bag, Site: #1 right upper arm. Medication Ordered: IV NS : initial bolus 1000 mL (1000 mL/hr), then 200 mL/hr for 4h (NOW); Urgent. Given 09:37 11/11/2016 Brittany Gonzalez RNeal Medication Administered: ZOFRAN [IVP] (ONDANSETRON HCL), Dose: 4 mg IVP over 2 minute(s), Site: #1 right upper arm. Medication Ordered: Zofran IV 4 mg (NOW).
--- NOTE | 2016-11-18 15:38 | ED MED RECONCILIATION SUMMARY ---
Patient: VANDANA BYNUM Medication Reconciliation Report [facility] VisitID: [id number] [address] [place] [address] 25y, M Registration Date/Time: 11/11/2016 Weight: 72.5 kg Height/Length: 74 in. BMI: 20.5 ALLERGIES: Penicillin The patient's Home Medications are listed below: NONE. The source(s) of the original Home Medication information: Not obtained. The following Medications were given to the patient in the Emergency Department: IV NS IV Fluids bolus 0, then 999 mL/hr, administered: 11/11/2016 9:37:00 AM Zofran [IVP] IVP 4 mg, administered: 11/11/2016 9:37:00 AM The following Medications were prescribed to the patient: Zofran 4 mg: Take 1 orally every six hours as needed for nausea/vomiting. Dispense ten (10). No refills. Substitution is permissible. -- Gonzalez Maguire MD
== END 2016-11-11 14:05 | disposition home or self-care (01) ==
LOC: ED SRH 08:38
DX: K52.9 Noninfective gastroenteritis and colitis, unspecified (principal); F11.10 Opioid abuse, uncomplicated; F15.10 Other stimulant abuse, uncomplicated; F17.210 Nicotine dependence, cigarettes, uncomplicated; Z88.0 Allergy status to penicillin
CPT/HCPCS: 90004; 90074; 90100; 92235; 92530; 92760; 92761; 92762; 92763; 92764; 92765; 92766; 92767; 95059

== ENCOUNTER 2016-11-20 18:11 | Emergency (ER) | payer OTHER ==
--- NOTE | 2016-11-20 20:03 | ED NURSING NOTES ---
Clinical Report - Nurses [facility] [address] [place] [address] 11/20/2016 18:11 Patient: VANDANA BYNUM TRIAGE Triage time 18:15 Nov 20 2016. Acuity: LEVEL 2. Chief Complaint: ALLERGIC REACTION and . pt with known allergy to hay was walking through a field, pt reports sudden onset of itching eyes, stuffed nose and areas of red welts on arms,back legs and face. Alert. SEPSIS SCREEN: Sepsis Screen. Negative (no infection suspected/documented). --18:20 Mazin Bell R.N. 18:15 11/20/16. BP: 144/74. HR: 87. RR: 19. O2 saturation: 100%. Temp: 97.9 F. Pain level now: 0/10. --18:20 Mazin Bell R.N. Weight: 72.5 kg stated. Height/Length: 74 inches Per Patient. BMI: 20.5. --18:20 Mazin Bell R.N. Medications None. --18:19 Mazin Bell R.N. Medication/allergy information source: the patient. --18:20 Mazin Bell R.N. Allergies Penicillin. --18:19 Mazin Bell R.N. History Arrived by private vehicle. Historian: patient. This started just prior to arrival. ( pt clears oral secretions, speaks long full clear sentences,). He has had a skin rash and itching. Treatment [employer]: None. PAST MEDICAL HX: Immunizations: up-to-date. SOCIAL HX: Smoker- current status unknown (cigarette). History of heavy IV drug use: heroin, methamphetamines. No alcohol use. No infectious disease exposure. ABUSE ASSESSMENT: No report of abuse. SELF HARM ASSESSMENT: A self harm assessment was performed. The patient answered "no" to the question "Do you have thoughts of harming or killing yourself?". FALL RISK ASSESSMENT: Fall risk assessment completed. No fall risk identified. NUTRITIONAL RISK ASSESSMENT: The nutritional risk assessment revealed no deficiencies. FUNCTIONAL ASSESSMENT: Functional assessment: no impairments noted. LEARNING NEEDS ASSESSMENT: The learning needs assessment revealed no barriers. SKIN INTEGRITY ASSESSMENT: Skin integrity risk assessment completed. No skin integrity risk identified. --18:20 Mazin Bell R.N. PROBLEMS: Iv Drug Use. Substance Abuse. Gastroenteritis. --18:19 Mazin Bell R.N. ADDITIONAL SURGERIES: no known surgeries. Interventions ID and allergy band on patient. --18:20 Mazin Bell R.N. PHYSICAL ASSESSMENT Ambulatory to room. GENERAL / NEURO / PSYCH: Alert. Appears anxious. Oriented X 4. HEENT: Pupils equal, round and reactive to light. RESPIRATORY: Respirations not labored. CVS: Pulses within normal limits. SKIN: Skin is warm and dry. Skin rash present. Urticaria present. Swelling present- to left eye. --18:22 Mazin Bell R.N. RESPIRATORY: ( L/S clear posteriorally, speaks full clear sentences, c/o "stuffy nose"). --18:24 Mazin Bell R.N. NURSING PROGRESS NOTES Pulse oximeter and NIBP monitor placed on patient; monitor alarms on. Patient gowned. Reassurance given. Patient identifiers checked. Call light placed in reach. Side rails up x 1. Bed placed in lowest position. Brakes of bed on. ( MD at bedside during triage- pt remains on O2 sat monitor, texting on phone, a/o x4, pt declines offer of iv placement, per pt "they have to get the ultrasound machine and then they can't get it always"). --18:23 Mazin Bell R.N. ( pt talking on phone,). --18:24 Mazin Bell R.N. 18:32 11/20/2016 Hydroxyzine IM 50 mg given. Given in the right gluteus natalie. Allergies verified, confirmed 5 rights and sedative warning given to the patient. --18:42 Mazin Bell R.N. 18:35 11/20/2016 Decadron IM 10 mg (NOW) was refused by patient because of pt refused IM, req po. Mazin Bell --18:45 Mazin Bell R.N. 18:39 11/20/2016 Decadron (Dexamethasone) PO Solution/Elixir 10 mg given. Allergies verified and confirmed 5 rights. (pt refused IM injection, v/o per MD ok to give po with juice). --18:45 Mazin Bell R.N. ( pt had IM hydroxyzine and then refused decadron IM, MD notified and ok to give po with juice.). --18:46 Mazin Bell R.N. ( pt reports dec in symptoms , left eye less swollen "It's not as itchy"). --18:46 Mazin Bell R.N. 18:46 11/20/16. O2 saturation: 100%. --18:47 Mazin Bell R.N. 19:17 11/20/2016 Claritin (Loratadine) PO 10 mg given. Allergies verified and confirmed 5 rights. --19:27 Mazin Bell R.N. 19:17 11/20/2016 Benadryl (DiphenhydrAMINE HCl) PO 50 mg given. Allergies verified, confirmed 5 rights and sedative warning given to the patient. --19:27 Mazin Bell R.N. DISPOSITION / DISCHARGE ( when this Rn went in to check on pt- room was empty, gown on bed, pt eloped). --22:36 Mazin Bell R.N. 19:47. ( notified pt no longer in ED). --22:36 Mazin Bell R.N. Locked/Released at 11/20/2016 22:37 by Mazin Bell R.N.
--- NOTE | 2016-11-20 20:03 | ED ORDER SUMMARY ---
..... Patient: VANDANA BYNUM OrderSheet [facility] VisitID: [id number] [place] [address] 26y, M Registration Date/Time: 11/20/2016 ORDER SHEET Weight: 72.5 kg (stated) Allergies: Penicillin GENERAL ORDERS: MEDICATION ORDERS: HydrOXYzine IM 50 mg (NOW, Do not administer intravenously) (18:20 11/20/2016 Alicia Patterson) (18:42 KParoxanna-Ninoska R.N.) Decadron IM 10 mg (NOW) (18:20 11/20/2016 Alicia Patterson) (18:45 Marco Antonio-Ninoska R.N.) (Cancelled: Duplicate Order19:03 Alicia Patterson) Decadron PO 10 mg (NOW) (18:43 11/20/2016 Arnaud R.N. verbal order read back to Alicia Patterson) (18:45 KPaJairo R.N.) Claritin PO 10 mg (NOW) (19:03 11/20/2016 Alicia Patterson) (19:27 KPaJairo R.N.) Benadryl PO 50 mg (NOW) (19:03 11/20/2016 Alicia Patterson) (19:27 KParoxanna-Ninoska R.N.) IV FLUIDS: ORDER SHEET NOTES: This document has not been locked and should not be saved in the medical record.
--- NOTE | 2016-11-20 20:03 | ED ORDER SUMMARY ---
..... Patient: VANDANA BYNUM OrderSheet [facility] VisitID: [id number] [place] [address] 26y, M Registration Date/Time: 11/20/2016 ORDER SHEET Weight: 72.5 kg (stated) Allergies: Penicillin GENERAL ORDERS: MEDICATION ORDERS: HydrOXYzine IM 50 mg (NOW, Do not administer intravenously) (18:20 11/20/2016 Alicia Patterson) (18:42 KParoxanna-Ninoska R.N.) Decadron IM 10 mg (NOW) (18:20 11/20/2016 Alicia Patterson) (18:45 Marco Antonio-Ninoska R.N.) (Cancelled: Duplicate Order19:03 Alicia Patterson) Decadron PO 10 mg (NOW) (18:43 11/20/2016 Arnaud R.N. verbal order read back to Alicia Patterson) (18:45 KPaJairo R.N.) Claritin PO 10 mg (NOW) (19:03 11/20/2016 Alicia Patterson) (19:27 KPaJairo R.N.) Benadryl PO 50 mg (NOW) (19:03 11/20/2016 Alicia Patterson) (19:27 KParoxanna-Ninoska R.N.) IV FLUIDS: ORDER SHEET NOTES: This document has not been locked and should not be saved in the medical record.
--- NOTE | 2016-11-20 22:37 | ED MAR SUMMARY ---
..... Medication Administration Record [facility] [address] [place] [address] Patient: VANDANA BYNUM Visit ID: [id number] 26y, M Weight: 72.5 kg Height/Length: 74 in BMI: 20.5 ALLERGIES: Penicillin Given 18:32 11/20/2016 Mazin Bell R.N. Medication Administered: HYDROXYZINE [IM], Dose: 50 mg IM. Medication Ordered: HydrOXYzine IM 50 mg (NOW, Do not administer intravenously). Given 18:39 11/20/2016 Mazin Bell R.N. Medication Administered: DECADRON [PO] (DEXAMETHASONE), Dose: 10 mg Solution/Elixir PO. Medication Ordered: Decadron PO 10 mg (NOW). Given 19:17 11/20/2016 Mazin Bell R.N. Medication Administered: CLARITIN [PO] (LORATADINE), Dose: 10 mg PO. Medication Ordered: Claritin PO 10 mg (NOW). Given 19:17 11/20/2016 Mazin Bell R.NEssie Medication Administered: BENADRYL [PO] (DIPHENHYDRAMINE HCL), Dose: 50 mg PO. Medication Ordered: Benadryl PO 50 mg (NOW).
--- NOTE | 2016-11-20 22:37 | ED MED RECONCILIATION SUMMARY ---
Patient: VANDANA BYNUM Medication Reconciliation Report [facility] VisitID: [id number] [address] [place] [address] 26y, M Registration Date/Time: 11/20/2016 Weight: 72.5 kg Height/Length: 74 in. BMI: 20.5 ALLERGIES: Penicillin The patient's Home Medications are listed below: NONE. The source(s) of the original Home Medication information: patient The following Medications were given to the patient in the Emergency Department: Hydroxyzine [IM] IM 50 mg, administered: 11/20/2016 6:32:00 PM Decadron [PO] PO 10 mg, administered: 11/20/2016 6:39:00 PM Claritin [PO] PO 10 mg, administered: 11/20/2016 7:17:00 PM Benadryl [PO] PO 50 mg, administered: 11/20/2016 7:17:00 PM The following Medications were prescribed to the patient: None.
--- NOTE | 2016-11-20 22:37 | ED MED RECONCILIATION SUMMARY ---
Patient: VANDANA BYNUM Medication Reconciliation Report [facility] VisitID: [id number] [address] [place] [address] 26y, M Registration Date/Time: 11/20/2016 Weight: 72.5 kg Height/Length: 74 in. BMI: 20.5 ALLERGIES: Penicillin The patient's Home Medications are listed below: NONE. The source(s) of the original Home Medication information: patient The following Medications were given to the patient in the Emergency Department: Hydroxyzine [IM] IM 50 mg, administered: 11/20/2016 6:32:00 PM Decadron [PO] PO 10 mg, administered: 11/20/2016 6:39:00 PM Claritin [PO] PO 10 mg, administered: 11/20/2016 7:17:00 PM Benadryl [PO] PO 50 mg, administered: 11/20/2016 7:17:00 PM The following Medications were prescribed to the patient: None.
--- NOTE | 2016-11-20 22:37 | ED MAR SUMMARY ---
..... Medication Administration Record [facility] [address] [address] Patient: VANDANA BYNUM Visit ID: [id number] 26y, M Weight: 72.5 kg Height/Length: 74 in BMI: 20.5 ALLERGIES: Penicillin Given 18:32 11/20/2016 Mazin Bell R.N. Medication Administered: HYDROXYZINE [IM], Dose: 50 mg IM. Medication Ordered: HydrOXYzine IM 50 mg (NOW, Do not administer intravenously). Given 18:39 11/20/2016 Mazin Bell R.N. Medication Administered: DECADRON [PO] (DEXAMETHASONE), Dose: 10 mg Solution/Elixir PO. Medication Ordered: Decadron PO 10 mg (NOW). Given 19:17 11/20/2016 Mazin Bell R.N. Medication Administered: CLARITIN [PO] (LORATADINE), Dose: 10 mg PO. Medication Ordered: Claritin PO 10 mg (NOW). Given 19:17 11/20/2016 Mazin Bell R.NEssie Medication Administered: BENADRYL [PO] (DIPHENHYDRAMINE HCL), Dose: 50 mg PO. Medication Ordered: Benadryl PO 50 mg (NOW).
== END 2016-11-20 19:20 | disposition home or self-care (01) ==
LOC: ED SRH 18:11
DX: Z53.21 Procedure and treatment not carried out due to patient leaving prior to being seen by health care provider (principal)